=== PATIENT | female | born 1995 | race Caucasian/White ===

== ENCOUNTER 2021-03-26 13:48 | Emergency (ER) | payer OTHER, SELFPAY ==
[2021-03-26 13:49] VITALS: BP 153/101; BP 158/111; PULSE 103; RESP 16; TEMP 36.4; O2SAT 95; BMI 47.3
--- NOTE | 2021-03-26 14:53 | CT_ITS ---
STUDY: CT ABDOMEN AND PELVIS WITHOUT CONTRAST REASON FOR EXAM: Female, 26 years old. Left flank pain RADIATION DOSAGE (If Supplied By Facility): CTDIvol = ( 22.72 ) mGy, DLP = ( 1289.42 ) mGycm TECHNIQUE: Transaxial images were obtained from the dome of the diaphragm to the symphysis pubis without oral contrast, and without intravenous contrast. Sagittal and coronal images were reconstructed. Individualized dose optimization techniques were used for this CT. COMPARISON: None. FINDINGS: The visualized lung bases are unremarkable. The visualized portions of the heart are within normal limits. There is decreased attenuation of the liver consistent with steatosis. Normal gallbladder and extrahepatic biliary system. Normal spleen. Normal pancreas. Normal bilateral adrenal glands. Normal right kidney. Normal left kidney. Normal visualized stomach. Normal small intestine. Normal colon. The appendix is visualized and appears normal. Normal abdominal aorta. Normal inferior vena cava. Normal retroperitoneum. Normal urinary bladder. Normal abdominal wall. Normal osseous structures. CT/Abdomen/Pelvis without Cont IMPRESSION: No renal or ureteral stone. Fatty infiltration of liver. Electronically Signed: Evelio Gomes MD at 16:38 EDT Tel , Service support ,
[2021-03-26 15:06] LABS: Absolute Lymphocyte Count 2.58 X10^3/uL (0.83-4.51); Absolute Neutrophil Count 8.3 X10^3/uL (2.0-7.7); Basophil# 0.05 X10^3/uL; Basophil% 0.4 % (0-1); Eosinophil# 0.08 X10^3/uL; Eosinophils% 0.7 % (0-5); Hematocrit 43.4 % (37-47); Hemoglobin 14.5 g/dL (12.0-15.0); Lymphocyte # 2.58 X10^3/ul (0.83-4.51); Mean Corp Hgb Conc 33.4 g/dL (32-36); Mean Corpuscular Volume 89.7 fL (81-99); Mean Platelet Vol. 11.5 fl (6.2-12.0); NRBC Flagged by Analyzer 0 % (0-5); Neutrophil # 8.27 X10^3/uL (2.7-7.7); Neutrophil % 70.6 % (47-70); Platelet Count 287 K/mm3 (150-450); RBC Distribution Width SD 42.3 fl (35.1-43.9); Red Blood Count 4.84 M/mm3 (4.2-5.4); White Blood Count 11.7 K/mm3 (4.4-11.0)
[2021-03-26 15:22] LABS: ALB/GLOB Ratio 0.9 RATIO (0.9-2.4); AST(SGOT) 24 U/L (15-37); Alanine Aminotransfer ALT/SGPT 50 U/L (13-56); Alkaline Phosphatase 78 U/L (45-117); Anion Gap 7 (5-15); BUN 8 mg/dL (7-18); Calcium,Total 9.4 mg/dL (8.5-10.1); Chloride 105 mmol/L (98-107); Creatinine, Serum 0.67 mg/dL (0.55-1.02); EST Glomerular Filtration Rate 114 mL/min (>60); Est Glom Filt Rate - Afr Amer 138 mL/min (>60); Estimated Creatinine Clearance 106.18 ml/min; Globulin 4.4 g/dL (2.2-4.2); Glucose 94 mg/dL (74-106); Lipase 71 U/L (73-393); Potassium 3.3 mmol/L (3.5-5.1); Protein, Total 8.4 g/dL (6.4-8.2); Sodium Level 139 mmol/L (136-145)
[2021-03-26] MEDS: 0.9% Normal Saline 1,000 ML 1000 ML IV (15:23)
[2021-03-26] MEDS: Morphine 4 MG/ML Syringe IV (15:23)
[2021-03-26] MEDS: Ondansetron 4 MG/2 ML Vial IV (15:23)
[2021-03-26 15:41] LABS: Mucous, Urine 0 SEEN /hpf (<or=2+); Red Blood Cells-Urine 0 SEEN /hpf (0-5); White Blood Cells 0 SEEN /hpf (0-5)
[2021-03-26 15:52] LABS: Color, Urine Yellow (Yellow); Glucose, Dipstick Normal (Normal); Ketone-Dipstick Negative (Negative); Leukocyte Esterase-Dipstick Negative /ul (Negative); Nitrite-Dipstick Negative (Negative); Occult Blood-Urine 10 /ul (Negative); Protein-Dipstick Negative (Negative); Urine Bilirubin Dipstick Negative (Negative); Urine Clarity Clear (Clear); Urine Urobilinogen Normal (Normal)
[2021-03-26 16:01] VITALS: RESP 12
[2021-03-26 16:07] LABS: Bacteria RARE /hpf (None Seen); Squamous Epithelial Cells - UA 0-5 SEEN /hpf (5-10)
[2021-03-26 16:09] LABS: Internal QC Validated? YES +Cl - CLEAR BKGD; Pregnancy, Serum, hCG Quali. NEGATIVE Negative
--- NOTE | 2021-03-26 17:16 | EDS_ITS ---
HPI History of Present Illness Chief Complaint: Flank Pain Informant: patient Onset/Context/Timing Onset: Weeks (1) Context: Gradual Onset Timing: Intermittent Quality: Cramping, sharp Location: Left lower quadrant and left flank Worsened by: Nothing Relieved by: Nothing Narrative Narrative: Aunts with left flank pain that began 1 week ago but became severe today. Patient states it has been intermittent over the last several days but today has been constant. Patient describes it as cramping and sharp. Patient states it is over the left lower quadrant and radiates into her left flank area. Patient states nothing makes it better nothing makes it worse. Patient denies any fevers or chills. Patient denies any nausea or vomiting. Patient denies any dysuria or hematuria. PFSH PFSH no medical history Allergy/AdvReac Type Severity Reaction Status Date / Time No Known Allergies Allergy Verified 03/26/21 13:52 no surgical history Social History Smoking Status: Never smoker ROS ROS ED Constitutional Constitutional ED: Denies chills or fever(s) Eyes Eyes: Denies blurry vision or change in vision ENT ENT ED: Denies rhinorrhea or sore throat Cardiovascular Cardiovascular: Denies chest pain or palpitations Respiratory/Chest Respiratory/Chest: Denies cough or dyspnea Gastrointestinal Gastrointestinal: Denies nausea or vomiting Genitourinary Genitourinary ED: Denies dysuria or hematuria Musculoskeletal Musculoskeletal: Reports back pain; Denies neck pain Integumentary Denies abscess or rash Neurologic Neurologic: Denies headache(s) or weakness Allergic/Immunologic Allergic/Immunologic ED: Denies mouth swelling or urticaria EXAM Physical Exam Const Vital Signs: 03/26/21 13:49 03/26/21 16:01 Temperature 97.6 F L Temperature Source Temporal Pulse Rate 103 H Respiratory Rate 16 12 Blood Pressure 153/101 H Blood Pressure Mean 118 Pulse Ox 95 Oxygen Delivery Method Room Air Positive well nourished, well developed and obese General Appearance ED: well developed Nutritional Appearance: obese HEENT Reports moist mucous membranes Neck supple and no JVD Resp normal respiratory effort and clear to auscultation bilaterally Cardio regular rate, regular rhythm and no murmurs GI normal to inspection, nondistended, normoactive bowel sounds Palpation: soft and tender LLQ; Negative for guarding or rebound tenderness present Back/Spine General Back: CVA tenderness left Extremity normal to inspection General Extremety ED: Negative for edema or tenderness General Extremity: Negative for edema Neuro oriented x3, CN's II-XII intact bilaterally and no sensory deficits noted Sensorium / Orientation: alert Motor Exam: strength 5/5 throughout Psych mental status grossly normal Skin no rashes or lesions noted MDM MDM MDM Narrative Medical decision making narrative: Patient was given IV fluids, morphine, and Zofran. CBC and comprehensive metabolic profile were within normal limits. Lipase was normal. Serum hCG was negative. CT scan of the abdomen pelvis was obtained. There is fatty infiltration of the liver. There is no acute process noted. Urinalysis was obtained. There is no evidence of urinary tract infection. Patient is feeling better on reevaluation. Patient was advised of her findings. Patient was instructed to follow-up with her primary care physician in 5 to 7 days. Patient understood and was agreeable with the plan. All questions were answered. Lab Data Attestation: I reviewed the patient's lab results. Labs: Laboratory Results - last 24 hr 03/26/21 03/26/21 03/26/21 14:50 14:50 14:50 WBC 11.7 H RBC 4.84 Hgb 14.5 Hct 43.4 MCV 89.7 MCH 30.0 MCHC 33.4 RDW Std Deviation 42.3 RDW Coeff of Jeff 13.0 Plt Count 287 MPV 11.5 Immature Gran % (Auto) 0.300 Neut % (Auto) 70.6 H Lymph % (Auto) 22.0 [place] % (Auto) 6.0 Eos % (Auto) 0.7 Baso % (Auto) 0.4 Absolute Neuts (auto) 8.3 H Absolute Lymphs (auto) 2.58 Nucleated RBC % 0 Sodium 139 Potassium 3.3 L Chloride 105 Carbon Dioxide 27.0 Anion Gap 7 BUN 8 Creatinine 0.67 Estim Creat Clear Calc 106.18 Est GFR (MDRD) Af Amer 138 Est GFR (MDRD) Non-Af 114 BUN/Creatinine Ratio 12.0 Glucose 94 Calcium 9.4 Total Bilirubin 0.70 AST 24 ALT 50 Alkaline Phosphatase 78 Total Protein 8.4 H Albumin 4.0 Globulin 4.4 H Albumin/Globulin Ratio 0.9 Lipase 71 L Serum , Qual NEGATIVE Urine Color Urine Clarity Urine pH Ur Specific [place] Urine Protein Urine Glucose (UA) Urine Ketones Urine Occult Blood Urine Nitrite Urine Bilirubin Urine Urobilinogen Ur Leukocyte Esterase Urine RBC Urine WBC Ur Squamous Epith Cells Urine Bacteria Urine Mucus 03/26/21 15:20 WBC RBC Hgb Hct MCV MCH MCHC RDW Std Deviation RDW Coeff of Jeff Plt Count MPV Immature Gran % (Auto) Neut % (Auto) Lymph % (Auto) [place] % (Auto) Eos % (Auto) Baso % (Auto) Absolute Neuts (auto) Absolute Lymphs (auto) Nucleated RBC % Sodium Potassium Chloride Carbon Dioxide Anion Gap BUN Creatinine Estim Creat Clear Calc Est GFR (MDRD) Af Amer Est GFR (MDRD) Non-Af BUN/Creatinine Ratio Glucose Calcium Total Bilirubin AST ALT Alkaline Phosphatase Total Protein Albumin Globulin Albumin/Globulin Ratio Lipase Serum , Qual Urine Color Yellow Urine Clarity Clear Urine pH 7.0 Ur Specific [place] 1.010 Urine Protein Negative Urine Glucose (UA) Normal Urine Ketones Negative Urine Occult Blood 10 H Urine Nitrite Negative Urine Bilirubin Negative Urine Urobilinogen Normal Ur Leukocyte Esterase Negative Urine RBC 0 SEEN Urine WBC 0 SEEN Ur Squamous Epith Cells 0-5 SEEN Urine Bacteria RARE Urine Mucus 0 SEEN Radiography Diagnostic Testing: Radiology Impression Abdomen/Pelvis CT 03/26/21 14:53 IMPRESSION: No renal or ureteral stone. Fatty infiltration of liver. Electronically Signed: Evelio Gomes MD at 16:38 EDT Tel , Service support , Discharge Plan Triage Chief Complaint: Flank Pain ED Provider: Tha Matias Dx/Rx/DC Orders Clinical Impression: Abdominal pain, left lower quadrant Instructions: ED Abdominal Pain Unkn Cause Fem, ED Flank Pain, Uncertain Cause Primary Care Provider: Care Physician,No Primary Referrals: Jorge Luis Maxwell DO [NON-STAFF] - 5-7 Days Care Physician,No Primary [Primary Care Provider] - Disposition Disposition: Home, Self Care
== END 2021-03-26 17:53 | disposition home or self-care (01) ==
PROVIDERS: Emergency Provider Emergency Medicine
DX: R10.32 Left lower quadrant pain (principal); K76.0 Fatty (change of) liver, not elsewhere classified; E66.9 Obesity, unspecified; Z68.42 Body mass index [BMI] 45.0-49.9, adult
CPT/HCPCS: 74176; 80053; 81001; 83690; 84703; 85025; 96361; 96374; 96375; 99283; A4216; J2405

== ENCOUNTER 2021-05-01 08:17 | Emergency (ER) | payer OTHER, SELFPAY ==
[2021-05-01 08:18] VITALS: BP 176/97; PULSE 93; RESP 18; TEMP 36.1; O2SAT 96; BMI 51.3
[2021-05-01 09:08] LABS: Absolute Lymphocyte Count 2.58 X10^3/uL (0.83-4.51); Absolute Neutrophil Count 7.5 X10^3/uL (2.0-7.7); Basophil# 0.04 X10^3/uL; Basophil% 0.4 % (0-1); Eosinophil# 0.12 X10^3/uL; Eosinophils% 1.1 % (0-5); Hematocrit 40.3 % (37-47); Hemoglobin 13.8 g/dL (12.0-15.0); Lymphocyte # 2.58 X10^3/ul (0.83-4.51); Lymphocyte % 23.6 % (19-41); Mean Corp Hgb Conc 34.2 g/dL (32-36); Mean Corpuscular Hgb 30.5 pg (27.0-32.0); Mean Platelet Vol. 11.1 fl (6.2-12.0); Monocyte# 0.67 X10^3/uL; Monocyte% 6.1 % (0-10); NRBC Flagged by Analyzer 0 % (0-5); Neutrophil # 7.47 X10^3/uL (2.7-7.7); Neutrophil % 68.4 % (47-70); Platelet Count 276 K/mm3 (150-450); RBC Distribution Width SD 42.5 fl (35.1-43.9); Red Blood Count 4.53 M/mm3 (4.2-5.4); White Blood Count 10.9 K/mm3 (4.4-11.0)
[2021-05-01 09:15] LABS: Mucous, Urine 0 SEEN /hpf (<or=2+)
[2021-05-01 09:21] LABS: Color, Urine Yellow (Yellow); Glucose, Dipstick Normal (Normal); Ketone-Dipstick Negative (Negative); Leukocyte Esterase-Dipstick 25 /ul (Negative); Nitrite-Dipstick Negative (Negative); Occult Blood-Urine 250 /ul (Negative); Protein-Dipstick 30 mg/dl (Negative); Urine Bilirubin Dipstick Negative (Negative); Urine Clarity Clear (Clear); Urine Urobilinogen Normal (Normal)
[2021-05-01 09:27] LABS: ALB/GLOB Ratio 0.8 RATIO (0.9-2.4); AST(SGOT) 18 U/L (15-37); Alanine Aminotransfer ALT/SGPT 42 U/L (13-56); Albumin, Serum 3.4 g/dL (3.2-5.0); Alkaline Phosphatase 74 U/L (45-117); Anion Gap 6 (5-15); BUN 9 mg/dL (7-18); Calcium,Total 8.9 mg/dL (8.5-10.1); Chloride 107 mmol/L (98-107); Creatinine, Serum 0.64 mg/dL (0.55-1.02); EST Glomerular Filtration Rate 119 mL/min (>60); Est Glom Filt Rate - Afr Amer 144 mL/min (>60); Estimated Creatinine Clearance 111.16 ml/min; Globulin 4.4 g/dL (2.2-4.2); Glucose 108 mg/dL (74-106); Potassium 3.7 mmol/L (3.5-5.1); Protein, Total 7.8 g/dL (6.4-8.2); Sodium Level 137 mmol/L (136-145)
[2021-05-01 09:32] LABS: Internal QC Validated? YES +Cl - CLEAR BKGD; Pregnancy, Serum, hCG Quali. NEGATIVE Negative
--- NOTE | 2021-05-01 09:33 | RAD_ITS ---
STUDY: X-RAY - ACUTE ABDOMINAL SERIES REASON FOR EXAM: Female, 26 years old. Abd pain TECHNIQUE: Single view of the chest. Supine, and erect view(s) of the abdomen were obtained. COMPARISON: None. FINDINGS: The lungs are clear and expanded. Normal size heart. Normal mediastinum and bryce. Normal visualized pulmonary arteries. Normal visualized aortic arch and descending thoracic aorta. There is a moderate amount of colonic fecal material. The soft tissue structures of the abdomen and pelvis are unremarkable. Normal visualized osseous structures. RAD/Acute Abdomen Inc Chest IMPRESSION: Moderate amount of fecal material is seen in the colon. Electronically Signed: Clovis Wolf MD at 10:54 EDT , Service support ,
[2021-05-01 09:38] LABS: White Blood Cells 0-5 SEEN /hpf (0-5)
[2021-05-01 09:39] LABS: Bacteria 1+ /hpf (None Seen); Red Blood Cells-Urine > 100 SEEN /hpf (0-5); Squamous Epithelial Cells - UA 0-5 SEEN /hpf (5-10)
[2021-05-01] MEDS: Mag Hydrox/Al Hydrox/Simeth 30 ML UDC PO (09:56)
[2021-05-01 09:58] LABS: Lipase 870 U/L (73-393)
--- NOTE | 2021-05-01 10:37 | CT_ITS ---
STUDY: CT ABDOMEN AND PELVIS WITH CONTRAST REASON FOR EXAM: Female, 26 years old. 3 day history of abdominal pain and nausea. ? Acute pancreatitis RADIATION DOSAGE (If Supplied By Facility): CTDIvol = ( 14.395 ) mGy, DLP = ( 1204.32 ) mGycm TECHNIQUE: Transaxial images were obtained from the dome of the diaphragm to the symphysis pubis without oral contrast. IV 100ML ISOVUE 370 was administered. Sagittal and coronal images were reconstructed. Individualized dose optimization techniques were used for this CT. COMPARISON: Comparison is made with prior study 03/26/2021. FINDINGS: The visualized lung bases are unremarkable. The visualized portions of the heart are within normal limits. There is decreased attenuation of the liver consistent with steatosis. Normal gallbladder and extrahepatic biliary system. Normal spleen. Normal pancreas. Normal bilateral adrenal glands. Normal right kidney. Normal left kidney. Normal visualized stomach. Normal small intestine. Normal colon. The appendix is visualized and appears normal. Normal abdominal aorta. Normal inferior vena cava. Normal retroperitoneum. Normal urinary bladder. Small follicles are seen in both ovaries. Normal abdominal wall. Normal osseous structures. CT/Abdomen/Pelvis W IV Cont ONLY IMPRESSION: Diffuse fatty infiltration of the liver. Electronically Signed: Clovis Wolf MD at 11:04 EDT , Service support ,
--- NOTE | 2021-05-01 13:00 | EDS_ITS ---
HPI History of Present Illness Chief Complaint: Abd Pain Narrative Narrative: Patient is a 26-year-old female who states that she ate a buffalo chicken salad the other day. She states that after that she developed pain in the mid upper abdomen. She states it resolved on its own within a few hours but the next day returned after eating and at this time has not improved with time. She reports slightly nauseated with this but denies any vomiting diarrhea dysuria. She denies any concern for and states she has no past medical history of gallbladder disease or alcohol abuse. PFSH PFSH Home Medications NK 05/01/21 [History Last Taken Unknown] famotidine [Pepcid] 20 mg PO BID #60 tab 05/01/21 [Rx Last Taken Unknown] Allergy/AdvReac Type Severity Reaction Status Date / Time No Known Allergies Allergy Verified 05/01/21 08:20 Social History Smoking Status: Never smoker ROS ROS ED Constitutional Constitutional ED: Denies chills or fever(s) ENT ENT ED: Denies sore throat Cardiovascular Cardiovascular: Denies chest pain Respiratory/Chest Respiratory/Chest: Denies cough or dyspnea Gastrointestinal Gastrointestinal: Reports abdominal pain and nausea; Denies diarrhea or vomiting Genitourinary Genitourinary ED: Denies dysuria Musculoskeletal Musculoskeletal: Denies myalgias Integumentary Denies rash Neurologic Neurologic: Denies headache(s) Hematologic/Lymphatic Hematologic/Lymphatic: Denies easy bleeding or easy bruising EXAM Physical Exam Const Vital Signs: 05/01/21 08:18 Temperature 97 F L Temperature Source Temporal Pulse Rate 93 Respiratory Rate 18 Blood Pressure 176/97 H Blood Pressure Mean 123 Pulse Ox 96 Oxygen Delivery Method Room Air Positive well nourished and well developed General Appearance ED: well developed HEENT Reports moist mucous membranes Eyes PERRL and EOMs intact bilaterally Neck supple Resp normal respiratory effort and clear to auscultation bilaterally Cardio regular rate and regular rhythm GI non-distended GI Narrative: Abdomen is obese soft and nondistended with normoactive bowel sounds. There is pain with palpation in the midepigastric region but no voluntary guarding or rigidity Auscultation: normoactive bowel sounds Palpation: soft Extremity normal to inspection Neuro oriented x3 and CN's II-XII intact bilaterally Sensorium / Orientation: alert Psych mental status grossly normal Skin no rashes or lesions noted MDM MDM MDM Narrative Medical decision making narrative: Patient presented to the ER with a soft nonsurgical abdomen. Her history and exam is most consistent with an acute gastritis but with concern this could be gallbladder or pancreas induced basic labs were obtained. Liver enzymes were normal but lipase was elevated 871. Secondary to this a CT was added which shows a normal pancreas and no acute abdominal pathology. Patient's urine did question infection but she has no urinary symptoms and therefore this time I will not place her on any type of antibiotic. After the GI cocktail patient reported resolution of her symptoms and on reevaluation her abdomen remains soft and nonsurgical. Therefore with negative CAT scan patient is safe for discharge and can follow-up on an outpatient basis Lab Data Labs: Laboratory Results - last 24 hr 05/01/21 05/01/21 05/01/21 08:51 08:51 08:51 WBC 10.9 RBC 4.53 Hgb 13.8 Hct 40.3 MCV 89.0 MCH 30.5 MCHC 34.2 RDW Std Deviation 42.5 RDW Coeff of Jeff 13.0 Plt Count 276 MPV 11.1 Immature Gran % (Auto) 0.400 Neut % (Auto) 68.4 Lymph % (Auto) 23.6 [place] % (Auto) 6.1 Eos % (Auto) 1.1 Baso % (Auto) 0.4 Absolute Neuts (auto) 7.5 Absolute Lymphs (auto) 2.58 Nucleated RBC % 0 Sodium 137 Potassium 3.7 Chloride 107 Carbon Dioxide 24.0 Anion Gap 6 BUN 9 Creatinine 0.64 Estim Creat Clear Calc 111.16 Est GFR (MDRD) Af Amer 144 Est GFR (MDRD) Non-Af 119 BUN/Creatinine Ratio 14.0 Glucose 108 H Calcium 8.9 Total Bilirubin 0.90 AST 18 ALT 42 Alkaline Phosphatase 74 Total Protein 7.8 Albumin 3.4 Globulin 4.4 H Albumin/Globulin Ratio 0.8 L Lipase Serum , Qual NEGATIVE Urine Color Urine Clarity Urine pH Ur Specific [place] Urine Protein Urine Glucose (UA) Urine Ketones Urine Occult Blood Urine Nitrite Urine Bilirubin Urine Urobilinogen Ur Leukocyte Esterase Urine RBC Urine WBC Ur Squamous Epith Cells Urine Bacteria Urine Mucus 05/01/21 05/01/21 08:51 09:06 WBC RBC Hgb Hct MCV MCH MCHC RDW Std Deviation RDW Coeff of Jeff Plt Count MPV Immature Gran % (Auto) Neut % (Auto) Lymph % (Auto) [place] % (Auto) Eos % (Auto) Baso % (Auto) Absolute Neuts (auto) Absolute Lymphs (auto) Nucleated RBC % Sodium Potassium Chloride Carbon Dioxide Anion Gap BUN Creatinine Estim Creat Clear Calc Est GFR (MDRD) Af Amer Est GFR (MDRD) Non-Af BUN/Creatinine Ratio Glucose Calcium Total Bilirubin AST ALT Alkaline Phosphatase Total Protein Albumin Globulin Albumin/Globulin Ratio Lipase 870 H Serum , Qual Urine Color Yellow Urine Clarity Clear Urine pH 7.0 Ur Specific [place] 1.010 Urine Protein 30 H Urine Glucose (UA) Normal Urine Ketones Negative Urine Occult Blood 250 H Urine Nitrite Negative Urine Bilirubin Negative Urine Urobilinogen Normal Ur Leukocyte Esterase 25 H Urine RBC > 100 SEEN Urine WBC 0-5 SEEN Ur Squamous Epith Cells 0-5 SEEN Urine Bacteria 1+ Urine Mucus 0 SEEN Radiography Diagnostic Testing: Radiology Impression Acute Abdomen Series 05/01/21 09:33 IMPRESSION: Moderate amount of fecal material is seen in the colon. Electronically Signed: Clovis Wolf MD at 10:54 EDT , Service support , Abdomen/Pelvis CT 05/01/21 10:37 IMPRESSION: Diffuse fatty infiltration of the liver. Electronically Signed: Clovis Wolf MD at 11:04 EDT , Service support , Discharge Plan Triage Chief Complaint: Abd Pain ED Provider: Anthony Giang Dx/Rx/DC Orders Clinical Impression: Acute gastritis Instructions: ED PEPTIC ULCER vs GASTRITIS Prescriptions: New famotidine [Pepcid] 20 mg tablet 20 mg PO BID Qty: 60 RF: 0 No Action NK RF: 0 Primary Care Provider: Marlon Hunter Referrals: Marlon Hunter MD [Primary Care Provider] - Disposition Disposition: Home, Self Care
[2021-05-01 13:12] VITALS: BP 124/77; PULSE 59; RESP 16; O2SAT 97
== END 2021-05-01 13:13 | disposition home or self-care (01) ==
PROVIDERS: Emergency Provider Emergency Medicine; PCP Family Medicine
DX: K29.00 Acute gastritis without bleeding (principal); K76.0 Fatty (change of) liver, not elsewhere classified
CPT/HCPCS: 74022; 74177; 80053; 81001; 83690; 84703; 85025; 99284; Q9967; A4216

== ENCOUNTER 2021-09-01 21:30 | Emergency (ER) | payer OTHER, SELFPAY ==
[2021-09-01 21:31] VITALS: BP 140/104; PULSE 103; RESP 18; TEMP 36.4; O2SAT 98; BMI 51.3
--- NOTE | 2021-09-01 22:18 | EDS_ITS ---
HPI HPI - Female History of Present Illness Chief Complaint: Vag Bleeding Informant: patient Narrative Narrative: 26-year-old female presenting to the emergency department with menometrorrhagia. Patient states that she has had near continuous bleeding since May. Her doctor put her on norethindrone. She states that she stopped this a week ago because she had continuous bleeding. States that today she has used 7 super tampons. She states that she does not feel that she is having any clots. She states that she spoke with her primary care who advised her that if she continues to bleed she may need to get her blood counts checked. No syncope or near syncope. She notes suprapubic cramping that is more significant than prior. [facility] Medical History Gastritis Irregular menstruation Home Medications famotidine [Pepcid] 20 mg PO BID #60 tab 05/01/21 [Rx Last Taken Unknown] megestrol 40 mg PO DAILY #30 tab 09/01/21 [Rx Last Taken Unknown] Allergy/AdvReac Type Severity Reaction Status Date / Time No Known Allergies Allergy Verified 05/01/21 08:20 Social History Smoking Status: Never smoker ROS [facility] ED Constitutional Constitutional ED: Denies chills or weight loss Eyes Eyes: Denies change in vision or diplopia ENT ENT ED: Denies ear pain, rhinorrhea or sore throat Cardiovascular Cardiovascular: Denies chest pain, orthopnea, palpitations or racing heartbeat Respiratory/Chest Respiratory/Chest: Denies cough, dyspnea or orthopnea Gastrointestinal Gastrointestinal: Denies abdominal pain, diarrhea, nausea or vomiting Genitourinary Genitourinary ED: Reports other Details: See history of present illness ; Denies dysuria, hematuria or urinary frequency Musculoskeletal Musculoskeletal: Denies arthralgias or myalgias Integumentary Denies abscess or rash Neurologic Neurologic: Denies headache(s) or weakness Psychiatric Psychiatric: Denies anxiety, depression, suicidal ideation or suicidal thoughts Endocrine Endocrinology: Denies polydipsia, polyphagia or polyuria Allergic/Immunologic Allergic/Immunologic ED: Denies mouth swelling, tongue swelling or urticaria EXAM Physical Exam Const Vital Signs: 09/01/21 21:31 Temperature 97.6 F L Temperature Source Temporal Pulse Rate 103 H Respiratory Rate 18 Blood Pressure 140/104 H Blood Pressure Mean 116 Pulse Ox 98 Oxygen Delivery Method Room Air Positive well nourished, well developed and obese General Appearance ED: well developed Nutritional Appearance: obese HEENT Reports normocephalic, head/scalp atraumatic, TM's clear and moist mucous membranes Negative for trauma Tympanic Membrane ED: Yes TM's clear Eyes PERRL and EOMs intact bilaterally Neck no lymphadenopathy, supple and no JVD Resp normal respiratory effort and clear to auscultation bilaterally Cardio regular rate, regular rhythm and no murmurs GI normal to inspection, nondistended, normoactive bowel sounds and non-tender Palpation: soft Back/Spine no CVA tenderness and normal ROM Extremity normal to inspection General Extremety ED: Negative for edema General Extremity: Negative for edema Neuro oriented x3 and CN's II-XII intact bilaterally Sensorium / Orientation: alert Motor Exam: strength 5/5 throughout Psych mental status grossly normal Mood & Affect: Negative for depressed or tearful Skin no rashes or lesions noted and no wounds MDM MDM MDM Narrative Medical decision making narrative: Hemoglobin is 12.9. test is negative. I spoke with Dr. Ahmadi. Patient is currently started on Megace 40 mg daily. Requesting early appointment. They have requested that we obtain an ultrasound tonight which I think is very reasonable. This demonstrated endometrial hyperplasia and multiple peripheral ovarian cyst. Endometrial thickness is 19 mm. No free fluid in the pelvis. She will follow-up in the office patient's comfortable plan Lab Data Attestation: I reviewed the patient's lab results. Labs: Laboratory Results - last 24 hr 09/01/21 09/01/21 22:25 22:25 Hgb 12.9 Hct 36.6 L Serum , Qual NEGATIVE Radiography Diagnostic Testing: Clinical Impression(s) from Imaging Studies Transvaginal US 09/01/21 22:47 IMPRESSION: Endometrial hyperplasia and multiple peripheral ovarian cysts suggest PCOS. Electronically Signed: Rony Kraus MD at 23:39 EST Tel , Service support , Discharge Plan Triage Chief Complaint: Vag Bleeding ED Provider: Adam Craven Dx/Rx/DC Orders Clinical Impression: Menometrorrhagia Instructions: ED Dysfunctional Uterine Bleeding Prescriptions: New megestrol 40 mg tablet 40 mg PO DAILY Qty: 30 RF: 0 No Action famotidine [Pepcid] 20 mg tablet 20 mg PO BID Qty: 60 RF: 0 Primary Care Provider: Marlon Hunter Referrals: Marlon Hunter MD [Primary Care Provider] - Rosie Ahmadi DO [STAFF PHYSICIAN] - As soon as possible (Please call the office to inform them you are seen in the emergency room requesting earlier appointment.) Disposition Disposition: Home, Self Care
[2021-09-01 22:33] LABS: Hematocrit 36.6 % (37-47); Hemoglobin 12.9 g/dL (12.0-15.0)
[2021-09-01 22:42] LABS: Internal QC Validated? YES +Cl - CLEAR BKGD; Pregnancy, Serum, hCG Quali. NEGATIVE Negative
--- NOTE | 2021-09-01 22:47 | US_ITS ---
STUDY: ULTRASOUND TRANSVAGINAL CLINICAL: Female, 26 years old. Menometrorrhagia x months TECHNIQUE: Transvaginal COMPARISON: None. FINDINGS: Normal uterine size measuring 6.1 x 5 x 3.8 cm in maximal craniocaudal dimension. The uterus is midline and retroverted. There are no myometrial masses. Normal endometrial thickness measuring 19 mm. There are no endometrial masses, and there is no fluid in the endometrial cavity. Normal uterine cervix with a nabothian cyst. Normal right ovary, measuring 4.3 x 2.4 x 2.1 cm. There are multiple follicles without a dominant cyst. Normal left ovary, measuring 3.5 x 2.7 x 2 cm. There are multiple follicles without a dominant cyst. There is no free fluid in the pelvis. US/Transvaginal Non- IMPRESSION: Endometrial hyperplasia and multiple peripheral ovarian cysts suggest PCOS. Electronically Signed: Rony Kraus MD at 23:39 EST Tel , Service support ,
[2021-09-01] MEDS: Ketorolac 60 MG/2 ML Vial IM (23:23)
== END 2021-09-01 23:55 | disposition home or self-care (01) ==
PROVIDERS: Emergency Provider Emergency Medicine; PCP Family Medicine; Visit Provider Emergency Medicine
DX: N92.1 Excessive and frequent menstruation with irregular cycle (principal); Z68.43 Body mass index [BMI] 50.0-59.9, adult; N83.01 Follicular cyst of right ovary; N83.02 Follicular cyst of left ovary; N88.8 Other specified noninflammatory disorders of cervix uteri; E66.9 Obesity, unspecified
CPT/HCPCS: 76830; 84703; 85014; 85018; 96372; 99282

== ENCOUNTER 2021-10-11 09:37 | Outpatient (CLI) | payer OTHER, SELFPAY ==
[2021-10-11 11:06] LABS: Hemoglobin A1c 5.7 % (3.8-5.6)
== END 2021-10-11 23:59 | disposition home or self-care (01) ==
LOC: LAB 09:38
PROVIDERS: PCP Family Medicine; Referring Provider Obstetrics & Gynecology; Visit Provider Obstetrics & Gynecology
DX: E66.9 Obesity, unspecified (principal)
CPT/HCPCS: 36415; 83036

== ENCOUNTER 2021-10-15 10:38 | Outpatient (CLI) | payer OTHER, SELFPAY ==
[2021-10-19 13:39] LABS: HPV Reflexed? NOT INDICATED
== END 2021-10-15 23:59 | disposition home or self-care (01) ==
LOC: LAB 10:39
PROVIDERS: PCP Family Medicine; Visit Provider Obstetrics & Gynecology
DX: Z12.4 Encounter for screening for malignant neoplasm of cervix (principal)
CPT/HCPCS: 88175; G0145

== ENCOUNTER → 2022-10-16 | Outpatient (CLI) | payer OTHER, SELFPAY ==
[2022-10-16 10:07] LABS: Hematocrit 42.1 % (37-47); Mean Corp Hgb Conc 33.3 g/dL (32-36); Mean Corpuscular Hgb 29.8 pg (27.0-32.0); Mean Corpuscular Volume 89.6 fL (81-99); Mean Platelet Vol. 10.9 fl (6.2-12.0); Platelet Count 309 K/mm3 (150-450); RBC Distribution Width CV 13.3 % (11.6-14.6); RBC Distribution Width SD 43.8 fl (35.1-43.9); White Blood Count 9.2 K/mm3 (4.4-11.0)
[2022-10-16 10:35] LABS: Hemoglobin A1c 5.9 % (3.8-5.6)
[2022-10-16 10:36] LABS: ALB/GLOB Ratio 0.8 RATIO (0.9-2.4); AST(SGOT) 38 U/L (15-37); Alanine Aminotransfer ALT/SGPT 71 U/L (13-56); Albumin, Serum 3.7 g/dL (3.2-5.0); Alkaline Phosphatase 74 U/L (45-117); Anion Gap 5 (5-15); BUN 11 mg/dL (7-18); BUN/Creat Ratio 15.9 RATIO (10-20); Calcium,Total 9.4 mg/dL (8.5-10.1); Chloride 107 mmol/L (98-107); Cholesterol 202 mg/dL (200); Creatinine, Serum 0.69 mg/dL (0.55-1.02); EST Glomerular Filtration Rate 108 mL/min (>60); Est Glom Filt Rate - Afr Amer 131 mL/min (>60); Globulin 4.5 g/dL (2.2-4.2); Glucose 122 mg/dL (74-106); High Density Lipoprotein 38 mg/dL; Potassium 3.7 mmol/L (3.5-5.1); Protein, Total 8.2 g/dL (6.4-8.2); Sodium Level 140 mmol/L (136-145); Thyroid Stim Hormone (TSH) 1.55 uIU/mL (0.358-3.74); Triglycerides 128 mg/dL; Very Low Density Lipoprotein 26 mg/dL (5-40)
== END | disposition home or self-care (01) ==
PROVIDERS: PCP Family Medicine; Referring Provider Obstetrics & Gynecology; Visit Provider Obstetrics & Gynecology
DX: E66.9 Obesity, unspecified (principal)
CPT/HCPCS: 36415; 80053; 80061; 82306; 83036; 84443; 85027

== ENCOUNTER → 2022-11-24 | Outpatient (CLI) | payer OTHER, SELFPAY ==
[2022-11-24 10:48] LABS: Follicle Stimulating Hormone 3.7 mIU/mL; Prolactin 14.7 ng/mL
[2022-11-29 11:07] LABS: Testosterone Free 3.1 pg/mL (0.0-4.2)
[2022-11-30 17:02] LABS: 17-Hydroxyprogesterone 55 ng/dL (.)
== END | disposition home or self-care (01) ==
LOC: PAVLAB 09:15
PROVIDERS: PCP Family Medicine; Referring Provider Obstetrics & Gynecology; Visit Provider Obstetrics & Gynecology
DX: N93.9 Abnormal uterine and vaginal bleeding, unspecified (principal)
CPT/HCPCS: 36415; 82627; 83001; 83498; 84146; 84402; 82626

== ENCOUNTER 2024-09-17 04:08 | Emergency (ER) | payer OTHER, SELFPAY ==
[2024-09-17 04:10] VITALS: BP 168/88; PULSE 107; RESP 18; TEMP 36.7; O2SAT 97; BMI 53.8
--- NOTE | 2024-09-17 04:46 | EDS_ITS ---
HPI HPI - Female History of Present Illness Chief Complaint: Vag Bleeding Informant: patient Narrative Narrative: Patient is a 29-year-old female with history of nonalcoholic fatty liver disease, hypertension, abnormal uterine bleeding and possible PCOS presenting with heavy vaginal bleeding. She reports that her last menstrual cycle was August 05. She had bleeding for 4 weeks. She called her [facility] and was put on a 5-day course of TXA as well as a progesterone taper. She was on that for 7 days. She stopped it on Wednesday, 4 days ago. She then started bleeding again 2 days ago. She states she is bleeding quite heavily. She states she is having cramping. She woke up this morning with left-sided cramping pain. She notes that she does get some relief with ibuprofen but did not take any since yesterday morning. Patient cramping is worse on the left side. She notes that she has bleeding through an ultra tampon an hour. She does report that the last time pain did last for 3 hours before she bled through it. She denies any lightheadedness or dizziness. No other complaints or concerns reported at this time. [facility] Medical History URI (upper respiratory infection) Earache symptoms in both ears Irregular menstruation Gastritis Home Medications ?Medication ?Instructions ?Recorded ?Last Taken ?Type norethindrone acetate 5 mg tablet 5 mg PO TID 7 days #21 tabs 09/17/24 Unknown Rx Allergy/AdvReac Type Severity Reaction Status Date / Time No Known Allergies Allergy Verified 11/17/23 17:35 Family History Father Kidney disease Liver disease Hypertension Diabetes Clotting disorder Mother Diabetes Hyperlipidemia Grandmother Diabetes Breast cancer Social History Smoking Status: Never smoker alcohol intake: current details: occasionally substance use type: does not use caffeine: Yes what type of physical activity do you participate in: walking frequency: 1-2 times per week seatbelt use: always do you feel safe at home: Yes additional social history: - Angel [facility] ED Constitutional Constitutional ED: Denies chills or fever(s) Gastrointestinal Gastrointestinal: Reports abdominal pain; Denies nausea or vomiting Genitourinary Genitourinary ED: Reports other Details: Heavy vaginal bleeding Neurologic Neurologic: Reports headache(s); Denies weakness Hematologic/Lymphatic Hematologic/Lymphatic: Denies easy bleeding or easy bruising EXAM Physical Exam Const Vital Signs: 09/17/24 04:10 Temperature 98.0 F Temperature Source Oral Pulse Rate 107 H Respiratory Rate 18 Blood Pressure 168/88 H Blood Pressure Mean 114 Pulse Ox 97 Oxygen Delivery Method Room Air Positive well nourished, well developed and obese General Appearance ED: well developed and NAD; Negative for pallor Nutritional Appearance: obese HEENT Reports moist mucous membranes Eyes PERRL General Eye ED: Negative for pale conjunctiva Neck supple Chest Wall inspection of chest normal Resp normal respiratory effort and clear to auscultation bilaterally Cardio regular rate and regular rhythm GI normal to inspection, nondistended, normoactive bowel sounds and soft to palpat ion Auscultation: normoactive bowel sounds Palpation: Negative for tender, guarding or rigid Back/Spine no CVA tenderness Extremity normal to inspection Neuro oriented x3 Sensorium / Orientation: alert Motor Exam: Negative for general weakness Psych mental status grossly normal Skin no rashes or lesions noted General Skin Exam: Negative for pallor MDM MDM MDM Narrative Medical decision making narrative: Patient evaluated for crampy lower abdominal pain and heavy vaginal bleeding. Patient's vital signs significant for mildly elevated blood pressure at a heart rate of 107. She appears nontoxic and in no acute distress. Abdomen is soft and nontender on exam. Differential includes dysfunctional uterine bleeding, symptomatic anemia, menstrual cramping. Lower suspicion for ovarian torsion given the timing of the symptoms. Will obtain labs including CBC and BMP to assess for anemia. Will perform pelvic exam. Ultrasound from 09/01/2021 reviewed which showed endometrial hyperplasia and multiple peripheral ovarian cyst suggestive of PCOS. Patient is given dose of Toradol for pain control. Pelvic exam does show vaginal bleeding. No cervical motion tenderness. No adnexal tenderness. No abnormal discharge appreciated. No vaginal masses. Normal external genitalia. Lab work largely normal. Patient has a mild leukocytosis 11.8 which is nonspecific. Normal hemoglobin of 14. CMP normal. Urinalysis consistent with menstrual contamination. Urine negative. Case discussed with MANUEL SequeiraF [facility] on-call. She recommends restarting progestin again and will have the patient follow-up in the office. Patient does feel improved after receiving Toradol. Given return precautions. Discharged home in stable condition. Lab Data Attestation: I reviewed the patient's lab results. Labs: Laboratory Results - last 24 hr 09/17/24 04:56 WBC 11.8 H RBC 4.71 Hgb 14.0 Hct 40.7 MCV 86.4 MCH 29.7 MCHC 34.4 RDW Std Deviation 42.9 RDW Coeff of Jeff 13.7 Plt Count 333 MPV 10.9 Immature Gran % (Auto) 0.300 Neut % (Auto) 64.1 Lymph % (Auto) 27.8 [place] % (Auto) 6.2 Eos % (Auto) 1.1 Baso % (Auto) 0.5 Absolute Neuts (auto) 7.6 Absolute Lymphs (auto) 3.27 Nucleated RBC % 0 Sodium 138 Potassium 3.4 L Chloride 107 Carbon Dioxide 23.0 Anion Gap 8 BUN 10 Creatinine 0.68 Estim Creat Clear Calc 168.47 Est GFR (MDRD) Af Amer 132 Est GFR (MDRD) Non-Af 109 BUN/Creatinine Ratio 14.7 Glucose 117 H Calcium 9.6 Urine Color Red Urine Clarity Cloudy Urine pH 7.0 Ur Specific [place] 1.010 Urine Protein 100 H Urine Glucose (UA) Normal Urine Ketones Negative Urine Occult Blood 250 H Urine Nitrite Negative Urine Bilirubin Negative Urine Urobilinogen Normal Ur Leukocyte Esterase 25 H Urine RBC > 100 SEEN Urine WBC 0-5 SEEN Ur Squamous Epith Cells 0-5 SEEN Urine Bacteria 0 SEEN Urine Mucus 0 SEEN Urine Test Negative Discharge Plan Triage Chief Complaint: Vag Bleeding ED Provider: Rosalinda Kenny Dx/Rx/DC Orders Clinical Impression: Abnormal uterine bleeding Instructions: ED Dysfunctional Uterine Bleeding Prescriptions: New norethindrone acetate 5 mg tablet 5 mg PO TID 7 Days Qty: 21 0RF Primary Care Provider: Marlon Hunter Referrals: Marlon Hunter MD [Primary Care Provider] - Joesph Noble MD [Med Staff - Active Staff] - 3-5 Days Activity Restrictions/Additional Instructions: Please call your [facility] office on Wednesday for close follow-up. Restart the Aygestin to hopefully control the bleeding again. Return if you have a progression worsening your symptoms or further concerns. Print Language: French Disposition Disposition: Home, Self Care
[2024-09-17] MEDS: Ketorolac 15 MG/ML Vial IV (04:57)
[2024-09-17 05:05] LABS: Bacteria 0 SEEN /hpf (None Seen); Mucous, Urine 0 SEEN /hpf (<or=2+)
[2024-09-17 05:07] LABS: Absolute Lymphocyte Count 3.27 X10^3/uL (0.83-4.51); Absolute Neutrophil Count 7.6 X10^3/uL (2.0-7.7); Basophil# 0.06 X10^3/uL; Basophil% 0.5 % (0-1); Eosinophil# 0.13 X10^3/uL; Eosinophils% 1.1 % (0-5); Hematocrit 40.7 % (37-47); Lymphocyte # 3.27 X10^3/ul (0.83-4.51); Lymphocyte % 27.8 % (19-41); Mean Corp Hgb Conc 34.4 g/dL (32-36); Mean Corpuscular Hgb 29.7 pg (27.0-32.0); Mean Corpuscular Volume 86.4 fL (81-99); Mean Platelet Vol. 10.9 fl (6.2-12.0); Monocyte# 0.73 X10^3/uL; Monocyte% 6.2 % (0-10); NRBC Flagged by Analyzer 0 % (0-5); Neutrophil # 7.56 X10^3/uL (2.7-7.7); Neutrophil % 64.1 % (47-70); Platelet Count 333 K/mm3 (150-450); RBC Distribution Width CV 13.7 % (11.6-14.6); RBC Distribution Width SD 42.9 fl (35.1-43.9); Red Blood Count 4.71 M/mm3 (4.2-5.4); White Blood Count 11.8 K/mm3 (4.4-11.0)
[2024-09-17 05:10] LABS: Color, Urine Red (Yellow); Glucose, Dipstick Normal (Normal); Internal QC Validated? YES +Cl - CLEAR BKGD; Ketone-Dipstick Negative (Negative); Leukocyte Esterase-Dipstick 25 /ul (Negative); Nitrite-Dipstick Negative (Negative); Occult Blood-Urine 250 /ul (Negative); Pregnancy, Urine Negative Negative; Protein-Dipstick 100 mg/dl (Negative); Urine Bilirubin Dipstick Negative (Negative); Urine Clarity Cloudy (Clear); Urine Urobilinogen Normal (Normal)
[2024-09-17 05:29] LABS: Red Blood Cells-Urine > 100 SEEN /hpf (0-5); Squamous Epithelial Cells - UA 0-5 SEEN /hpf (5-10); White Blood Cells 0-5 SEEN /hpf (0-5)
[2024-09-17 05:32] LABS: Anion Gap 8 (5-15); BUN 10 mg/dL (7-18); BUN/Creat Ratio 14.7 RATIO (10-20); Calcium,Total 9.6 mg/dL (8.5-10.1); Chloride 107 mmol/L (98-107); Creatinine, Serum 0.68 mg/dL (0.55-1.02); EST Glomerular Filtration Rate 109 mL/min (>60); Est Glom Filt Rate - Afr Amer 132 mL/min (>60); Estimated Creatinine Clearance 168.47 ml/min; Glucose 117 mg/dL (74-106); Potassium 3.4 mmol/L (3.5-5.1); Sodium Level 138 mmol/L (136-145)
[2024-09-17 06:03] VITALS: BP 128/61; PULSE 83; RESP 20; TEMP 36.9; O2SAT 93
== END 2024-09-17 06:03 | disposition home or self-care (01) ==
PROVIDERS: Emergency Provider Emergency Medicine; PCP Family Medicine; Visit Provider Emergency Medicine
DX: N93.9 Abnormal uterine and vaginal bleeding, unspecified (principal)
CPT/HCPCS: 80048; 81001; 81025; 85025; 96374; 99283